=== PATIENT | male | born 1950 | race Caucasian/White ===

== ENCOUNTER 2016-04-10 11:32 | Emergency (ER) | payer OTHER ==
[~2016-04-10] VITALS: Ht 165.1 cm; Wt 79.5 kg
[~2016-04-10 11:32] MED LIST: BEN25 PO; EPIN0.3P4 INJ; LISI10TA2 PO; PRED20TA PO; TRAZ50TA18 PO
[2016-04-10 12:06] VITALS: Ht 165.1 cm; Wt 79.5 kg
--- NOTE | 2016-04-10 14:14 | ERD ---
ER Documentation Chief Complaint Date/Time DATE: 04/10/16 TIME: 13:54 Chief Complaint COUGH,COLDS X 2 DAYS HPI 65 y/o male presents to ED for productive cough for 2 days. Also stated that he felt like he had a fever early this morning but did not take his temperature. Was exposed to sun who is the same symptoms. Denies headache, loss of consciousness, dizziness, blurry vision, changes in vision, photophobia, facial pain, ear pain, throat pain, difficulty swallowing, neck pain, shoulder pain, chest pain, hemoptysis, abdominal pain, back pain, loss of appetite, nausea, vomiting, hematochezia, diarrhea, constipation, urinary symptoms, bladder and bowel incontinences, extremity weakness, extremity tenderness, numbness or tingling sensation, difficulty walking, recent travel, recent antibiotic use in the last 3 months, chills. Allergy: NKA PMH: Hypertension Medications: Unable to remember the name of his antihypertensive medication. Surgery: Denies Family history: Denies Primary Social History: On disability. Denies smoking, use of alcohol, use of illegal drugs. ROS All systems reviewed and are negative except as per history of present illness. Medications Home Meds Active Scripts Albuterol Sulfate* (Proair HFA*) 8.5 Gm Hfa.aer.ad, 2 PUFF INH Q4, #1 INHALER Prov:ANTONIOBLANKABEL Taylor 04/10/16 Azithromycin* (Zithromax*) 250 Mg Tablet, 250 MG PO .ZPACK DIRECTED, #6 TAB TAKE 500 MG (2 TABS) THE FIRST DAY THEN 250 MG (1 TAB) DAYS 2-5 Prov:ANTONIOBLANKGABRIELLEDONALD Taylor 04/10/16 Diphenhydramine Hcl* (Benadryl*) 25 Mg Cap, 25 MG PO Q6, #30 CAP Prov:JEREMIAH BLACKBURNSTOLOS A. DO 11/01/15 Epinephrine (Epipen 2-Herve) 0.3 Mg/0.3 Ml Pen.injctr, 1 EA INJ ONCE Y for ALLERGIC REACTION, #1 EA Prov:LETITIA BLACKBURN A. DO 11/01/15 Prednisone* (Prednisone*) 20 Mg Tab, 60 MG PO DAILY for 5 Days, TAB Prov:LETITIA BLACKBURN DO 8/22/16 Reported Medications Trazodone Hcl* (Trazodone Hcl*) 50 Mg Tablet, 50 MG PO HS, TAB 01/30/14 Lisinopril* (Lisinopril*) 10 Mg Tablet, 10 MG PO DAILY, TAB 01/30/14 Allergies Allergies: Coded Allergies: No Known Allergy (Unverified , 11/01/15) POSSIBLE REACTION TO RAHEEM INHIBITOR (PER ER DOCTOR) PMhx/Soc History of Surgery: No Anesthesia Reaction: No Hx Neurological Disorder: No Hx Respiratory Disorders: No Hx Cardiac Disorders: Yes (HTN, HIGH CHOLESTEROL) Hx Psychiatric Problems: No Hx Miscellaneous Medical Probl: No Hx Alcohol Use: No Hx Substance Use: No Hx Tobacco Use: No Physical Exam Vitals Vital Signs Date Time Temp Pulse Resp B/P Pulse Ox O2 Delivery O2 Flow Rate FiO2 04/10/16 14:30 98.5 78 18 110/60 98 Room Air 04/10/16 12:06 98.5 78 18 110/63 98 Physical Exam CONSTITUTIONAL: Well-appearing; well-nourished; in no apparent distress. HEAD: Normocephalic; atraumatic. EYES: Conjunctiva clear, sclera non-icteric, EOM intact. PERRL Ears: Hearing intact. EACs clear, TMs non-bulging, non-inflamed, translucent & mobile, ossicles normal appearance, No obstructions, no erythema, no discharges Nose: No obstructions. No polyps. No external lesions. Has mild congestion. No external lesions, septum and turbinates normal. No rhinorrhea. No discharges. Frontal sinus is non-tender to palpation. Maxillary sinus is non- tender to palpation. MOUTH: Moist mucous membranes, no lesion, no obstructions, no vesicles, no thrush, patent airway Throat: Uvula in midline. Right tonsil is +1 with no erythema, no exudate. Left tonsil is +1 with no erythema, no exudate. Tolerating secretions well. Good gag reflex. Patent airway. Neck: Supple, without lesions, bruits, or adenopathy. No mass. Thyroid non- enlarged and non-tender to palpation. CHEST: Symmetrical chest. Respirations even and not labored. No retractions noted. CARDIOVASCULAR: Normal S1, S2. RRR. No murmurs, gallops. RESPIRATORY: Normal chest excursion with respiration; breath sounds clear and equal bilaterally; no wheezes, rhonchi, or rales. Breathing even and unlabored. Speaking in clear, full, and complete sentences w/ ease. ABDOMEN: Normal bowel sounds normal. Soft, round, non-distended, non-guarding, no tenderness, no rebound, no organomegaly, no masses, no pulsating abdominal mass. No hernia. No peritoneal signs. : No CVA tenderness. BACK: Symmetrical shoulder. Spine is midline without deformity, tenderness. No evidence of trauma or deformity. PELVIS: Stable pelvis. No evidence of trauma or deformity. MUSCULOSKELETAL: Normal gait and station. No misalignment, asymmetry, crepitation, defects, tenderness, masses, effusions, decreased range of motion, instability, atrophy or abnormal strength or tone in the head, neck, spine, ribs , pelvis or extremities. No calf tenderness. NEUROVASCULAR: Distal pulses are present. Pedal pulse are present, equal, and normal. Capillary refills are < 2 seconds. NEUROLOGIC: Alert and oriented x4. Speaks full and clear sentences. Cranial Nerves II-XII normal. Sensation to pain, touch, and proprioception normal. Grossly unremarkable. No neurologic deficits. Romberg test is negative. PSYCHOLOGICAL: The patients mood and manner are appropriate. No hallucinations , delusions. Not SI. Not HI. Has the capacity to decide for self SKIN: Normal for age and ethnicity; warm; dry; good turgor; no apparent lesions or exudates. No rashes, hives, discoloration. Intact. Procedures/MDM Examination: Unremarkable examination except mild congestion Disease process, medical treatment was explained to the patient and family member. They verbalized understanding and agreed with the diagnostic tests, medical treatment, and follow-up care. Consultation: None Differential diagnosis: Pneumonia versus bronchitis versus upper respiratory infection Medical decision [id number] y/o male presents to ED for productive cough for 2 days. Also stated that he felt like he had a fever early this morning but did not take his temperature. Was exposed to sun who is the same symptoms. Patient 's complaint, my physical findings are consistent with my final diagnosis of acute bronchitis. Medications prescribed are the following: Azithromycin. Pro-air. Patient and family member are made aware of the side effects and adverse reactions of the medications prescribed. Instructed on when to seek emergent and medical attention in case allergic/anaphylactic reactions or severe side effects and or adverse reactions to medications. Patient and family member verbalized understanding. Patient instructed Instructed to follow-up with his PCP in 24-48 hours. Instructed to Call 911 for chest pain, shortness of breath. Advised to come back here in ED as soon as possible for severity of symptoms which includes but not limited to: any new symptoms; shortness of breath/difficulty of breathing; cardiovascular changes; severe gastrointestinal symptoms; signs and symptoms of bleeding and or infection; signs of compartment syndrome/neurovascular changes; neurological changes/deficits. Patient and family member verbalized understanding. Upon discharge, patient is alert and oriented x 4, speaks full and clear sentences, denies pain, has no neurological deficits, has no neurovascular deficits, difficulty of breathing. Breathing even and unlabored. Lung sounds are clear to auscultation. Not in distress. Appears comfortable. Ambulatory with steady gait. Appears satisfied with care provided here in ED. Departure Diagnosis: Primary Impression: Upper respiratory infection URI type: unspecified URI Qualified Code: J06.9 - Upper respiratory tract infection, unspecified type Additional Impression: Bronchitis Condition: Good Additional Instructions: Follow-up with PCP in 24-48 hours. ABEL LEE Apr 10, 2016 14:14 ABEL LEE Apr 10, 2016 14:14
[2016-04-10] MEDS ORDERED: AZIT250T94 PO (14:15)
[2016-04-10] MEDS ORDERED: ALBU8.5H3 INH (14:15)
[2016-04-10 14:30] VITALS: BP 110/60; PULSE 78; RESP 18; TEMP 98.5
== END 2016-04-10 14:32 | disposition home or self-care (01) ==
LOC: FTE 11:32
DX: J06.9 Acute upper respiratory infection, unspecified (principal); J20.9 Acute bronchitis, unspecified; I10 Essential (primary) hypertension
CPT/HCPCS: 99284

== ENCOUNTER 2018-03-18 09:32 | Emergency (ER) | payer OTHER ==
[~2018-03-18] VITALS: Ht 167.6 cm; Wt 73.2 kg
[~2018-03-18 09:32] MED LIST changes: +ALBU8.5H8 INH; +AZIT250T PO; +TRAZ-111 PO; -TRAZ50TA18 PO
[2018-03-18 09:37] VITALS: BP 163/82; PULSE 88; RESP 20; Ht 167.6 cm; Wt 73.2 kg
[2018-03-18] MEDS ORDERED: TYL500 PO (10:27)
[2018-03-18] MEDS ORDERED: IBUP-1561 PO (10:27)
[2018-03-18] MEDS ORDERED: ACETAMINOPHEN 325 MG TAB PO ONE (10:30)
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
== END 2018-03-18 11:46 | disposition home or self-care (01) ==
LOC: FTE 09:32
DX: M54.9 Dorsalgia, unspecified (principal); I10 Essential (primary) hypertension; M25.511 Pain in right shoulder
CPT/HCPCS: 99282